=== PATIENT | female | born 1960 | race Caucasian/White ===

== ENCOUNTER 2016-11-02 18:08 | Emergency (ER) | payer MEDICAID ==
[~2016-11-02] VITALS: Ht 165.1 cm; Wt 74.8 kg
[2016-11-02 23:11] VITALS: BP 116/55
== END 2016-11-03 | disposition home or self-care (01) ==
LOC: ER 18:15
DX: S86.912A Strain of unspecified muscle(s) and tendon(s) at lower leg level, left leg, initial encounter (principal); I11.0 Hypertensive heart disease with heart failure; F17.210 Nicotine dependence, cigarettes, uncomplicated; I50.9 Heart failure, unspecified; G89.29 Other chronic pain; M54.9 Dorsalgia, unspecified; Z88.1 Allergy status to other antibiotic agents; Z88.0 Allergy status to penicillin; X58.XXXA Exposure to other specified factors, initial encounter; Y93.89 Activity, other specified; Y99.8 Other external cause status; Y92.89 Other specified places as the place of occurrence of the external cause
CPT/HCPCS: 93926

== ENCOUNTER 2017-08-31 18:08 | Emergency (ER) | payer MEDICAID ==
[~2017-08-31] VITALS: Ht 165.1 cm; Wt 68.0 kg
[2017-08-31 18:08] VITALS: BP 122/81
[2017-09-01] MEDS ORDERED: KETOROLAC TROMETH 60MG/2ML VIAL IM ONE (02:00)
[2017-09-01] MEDS ORDERED: HYDROcodone-ACET 5/325MG TAB PO ONE (02:00)
== END 2017-09-01 02:34 | disposition home or self-care (01) ==
LOC: ER 18:08
DX: G43.909 Migraine, unspecified, not intractable, without status migrainosus (principal); I11.0 Hypertensive heart disease with heart failure; I50.9 Heart failure, unspecified; F17.210 Nicotine dependence, cigarettes, uncomplicated; Z88.0 Allergy status to penicillin; Z87.442 Personal history of urinary calculi; Z88.1 Allergy status to other antibiotic agents
CPT/HCPCS: 70450

== ENCOUNTER 2017-10-19 02:04 | Emergency (ER) | payer MEDICAID ==
[~2017-10-19] VITALS: Ht 167.6 cm; Wt 72.6 kg
[2017-10-19 04:05] LABS: Basophils # (auto) 0 uL; Basophils % (auto) 0.4 % (0.0-2.0); Eosinophils # (auto) 0.4 uL; Eosinophils % (auto) 3.5 % (0.0-7.0); Hematocrit 35.5 % (36.0-46.0); Hemoglobin 11.4 g/dL (12.2-16.2); Lymphocytes # (auto) 0.9 uL; Lymphocytes % (auto) 8.5 % (10.0-50.0); Mean Corpuscular Hemoglobin 30.5 pg (28.0-32.0); Mean Corpuscular Hgb Conc. 32.2 g/dL (32.0-36.0); Mean Corpuscular Volume 94.9 fL (80.0-100.0); Monocytes # (auto) 0.9 uL; Monocytes % (auto) 8.1 % (0.0-12.0); Neutrophils # (auto) 8.6 uL; Neutrophils % (auto) 79.5 % (37.0-80.0); Platelet Count (auto) 181 10^3/uL (140-450); Red Blood Cells 3.74 10^6/uL (4.0-5.20); Red Cell Distribution Width 16.9 % (11.8-14.3); White Blood Cell 10.7 10^3/uL (4.4-10.8)
[2017-10-19 04:34] LABS: Albumin 2.4 g/dL (3.4-5.0); BUN/Creatinine Ratio 21.3; Bilirubin, Total 0.2 mg/dL (0.2-1.0); Calcium 7.7 mg/dL (8.5-10.1); Potassium 3.4 mmol/L (3.5-5.1); Total Protein 6.6 g/dL (6.4-8.2)
[2017-10-19] MEDS ORDERED: methylPREDNISolone SOD SUCC 125 MG/2 ML VL IV ONE (07:00)
[2017-10-19] MEDS ORDERED: ALBUTEROL SULF 2.5 MG/0.5ML(0.5%) NEB SOLN NEB ONE (07:00)
[2017-10-19] MEDS ORDERED: IPRATROPIUM BROM 0.5 MG/2.5ML INH SOL NEB ONE (07:00)
[2017-10-19] MEDS ORDERED: ASPirin 81 mg TAB PO ONE (08:00)
[2017-10-19] MEDS ORDERED: ENOXAPARIN SOD 80 MG/0.8ML SYRINGE SC ONE (08:00)
[2017-10-19] MEDS ORDERED: IOHEXOL 350 MG/ML 100ML IJ ONE (10:54)
[2017-10-19] MEDS ORDERED: HYDROcodone-ACET 5/325MG TAB PO PRN (11:00)
[2017-10-19] MEDS ORDERED: HYDROcodone-ACET 10/325MG TAB PO PRN ×2 (11:00→11:15)
[2017-10-19] MEDS ORDERED: ACETAMINOPHEN 325 MG TAB PO PRN (11:00)
[2017-10-19] MEDS ORDERED: DOCUSATE SOD 100 MG CAP PO PRN (11:00)
[2017-10-19] MEDS ORDERED: TEMAZEPAM 15 MG CAP PO PRN (11:00)
[2017-10-19] MEDS ORDERED: VANCOMYCIN PER PHARMACY 0 MG IV SCH (11:00)
[2017-10-19] MEDS ORDERED: LEVOFLOXACIN 500MG 100 ML IV ONE (11:00)
[2017-10-19] MEDS ORDERED: ONDANSETRON HCL 4 MG/2 ML VIAL IV PRN (11:00)
[2017-10-19] MEDS ORDERED: POTASSIUM CHLORIDE 8 MEQ TAB PO ONE (11:00)
[2017-10-19] MEDS ORDERED: NITROGLYCERIN 0.4 MG SL TAB SL PRN (11:00)
[2017-10-19] MEDS ORDERED: MORPHINE SULFATE 8mg/ml INJ SDV IV PRN (11:00)
[2017-10-19] MEDS ORDERED: BOOST PLUS 8 ounce PO SCH (12:00)
[2017-10-19] MEDS ORDERED: methylPREDNISolone SOD SUCC 40 MG/ML VL IV SCH (12:00)
[2017-10-19] MEDS ORDERED: IPRATROPIUM BROM 0.5 MG/2.5ML INH SOL NEB SCH (12:00)
[2017-10-19] MEDS ORDERED: ALBUTEROL SULF 2.5 MG/0.5ML(0.5%) NEB SOLN NEB SCH (12:00)
[2017-10-19] MEDS ORDERED: LORazepam 0.5 MG TAB PO PRN (12:15)
[2017-10-19] MEDS ORDERED: LORazepam 0.5 MG TAB ONE (12:16)
[2017-10-19] MEDS ORDERED: VANCOMYCIN 1GM/250ML 250 ML IV SCH (13:00)
[2017-10-19 13:38] LABS: Urine Bacteria NONE SEEN /hpf (None Seen); Urine Blood 1+ /uL (Negative); Urine Mucus FEW (None Seen); Urine Specific Gravity 1.025 (1.001-1.035); Urine WBC 1 /hpf (0 - 5)
[2017-10-19 13:51] VITALS: BP 153/99
[2017-10-19] MEDS ORDERED: SODIUM CHLOR 0.9% PF (SALINE LOCK) 10ML VIAL/SYR IV SCH (14:00)
[2017-10-19] MEDS ORDERED: FLUoxetine HCL 20 MG CAP PO SCH (18:00)
[2017-10-19] MEDS ORDERED: MORPHINE SULF 15mg ER tab PO SCH (22:00)
[2017-10-19] MEDS ORDERED: FAMOTIDINE 20 MG TAB PO SCH (22:00)
[2017-10-19] MEDS ORDERED: ATORVASTATIN 20 MG TAB PO SCH (22:00)
[2017-10-20] MEDS ORDERED: LEVOFLOXACIN 500MG 100 ML IV SCH (10:00)
[2017-10-20] MEDS ORDERED: ESTRADIOL 1 MG TAB PO SCH (10:00)
[2017-10-20] MEDS ORDERED: MULTIPLE VITAMIN TAB PO SCH (10:00)
== END 2017-10-19 14:00 | disposition left against medical advice (07) ==
LOC: ER 02:04 → EDBD 02:04 → UNDOADMIN 02:05 → TELE 02:05
DX: J18.9 Pneumonia, unspecified organism (principal); J45.901 Unspecified asthma with (acute) exacerbation; G89.4 Chronic pain syndrome; E78.5 Hyperlipidemia, unspecified; F32.9 Major depressive disorder, single episode, unspecified; J90 Pleural effusion, not elsewhere classified; I11.0 Hypertensive heart disease with heart failure; I50.9 Heart failure, unspecified; E43 Unspecified severe protein-calorie malnutrition; Z68.25 Body mass index [BMI] 25.0-25.9, adult
CPT/HCPCS: 36415; 71045; 71275; 80053; 81001; 84443; 84484; 85025; 87040; 87086; 93005; 94640; 96365; 96367; 96372; 96375; 96376; 99285; J1650; J1956; J2920; J2930; J3370; Q9967; 87045